=== PATIENT | female | born 1990 | race African-American/Black ===

== ENCOUNTER 2016-04-25 18:24 | Inpatient (IN) | payer MEDICAID ==
[2016-04-25 18:33] VITALS: BP 113/75
--- NOTE | 2016-04-25 18:48 | ER Document Report ---
ED Medical Screen (RME) - General Chief Complaint: Constipation Stated Complaint: ABDOMINAL PAIN/CONSTIPATION Notes: Constipation and . I greeted and performed a rapid initial assessment of this patient. Comprehensive ED assessment and evaluation of the patient, analysis of test results and completion of the medical decision making process will be conducted by additional ED providers. TRAVEL OUTSIDE OF THE [place] IN LAST 30 DAYS: No - Related Data Allergies/Adverse Reactions: No Known Allergies Allergy (Unverified 04/25/16 18:40) Past Medical History Renal/ Medical History: Denies: Hx Peritoneal Dialysis Physical Exam - Vital signs Vitals: Temp Pulse Resp BP Pulse Ox 98.3 F 116 H 20 113/75 99 04/25/16 18:31 04/25/16 18:31 04/25/16 18:31 04/25/16 18:31 04/25/16 18:31 Course - Vital Signs Vital signs: Temp Pulse Resp BP Pulse Ox 98.3 F 116 H 20 113/75 99 04/25/16 18:31 04/25/16 18:31 04/25/16 18:31 04/25/16 18:31 04/25/16 18:31
[2016-04-25 21:04] LABS: ABSOLUTE EOSINOPHILS # (AUTO) 0.1 10^3/uL (0.0-0.6); ABSOLUTE LYMPHOCYTES (AUTO) 1.6 10^3/uL (0.5-4.7); ABSOLUTE MONOCYTES (AUTO) 0.6 10^3/uL (0.1-1.4); ABSOLUTE NEUT (AUTO) 5.5 10^3/uL (1.7-8.2); BASOPHILS % (AUTO) 0.6 % (0-2); HEMATOCRIT 34.7 % (36.0-47.0); HEMOGLOBIN 11.7 g/dL (12.0-15.5); HGB HCT DIFFERENCE 0.4; MEAN CORPUSCULAR HGB CONC 33.8 g/dL (32.0-36.0); MEAN CORPUSCULAR VOLUME 89 fl (80-97); MONOCYTES % (AUTO) 7.3 % (3-13); RED BLOOD COUNT 3.91 10^6/uL (3.72-5.28); RED CELL DISTRIBUTION WIDTH 12.7 % (11.5-14.0); SEGMENTED NEUTROPHILS % (AUTO) 71.1 % (42-78); WHITE BLOOD COUNT 7.8 10^3/uL (4.0-10.5)
[2016-04-25 21:14] LABS: APPEARANCE,URINE CLEAR; BILIRUBIN,URINE NEGATIVE (NEGATIVE); GLUCOSE, URINE NEGATIVE (NEGATIVE); KETONES,URINE NEGATIVE (NEGATIVE); LEUKOCYTE ESTERASE,URINE NEGATIVE (NEGATIVE); NITRITE,URINE NEGATIVE (NEGATIVE); PROTEIN,URINE NEGATIVE (NEGATIVE); UROBILINOGEN,URINE NEGATIVE mg/dL (<2.0)
[2016-04-25 21:23] LABS: ALANINE AMINOTRANSFERASE 28 U/L (9-52); ALBUMIN 3.4 g/dL (3.5-5.0); ALKALINE PHOSPHATASE 83 U/L (38-126); ANION GAP 10 (5-19); ASPARTATE AMINO TRANSFERASE 21 U/L (14-36); BILIRUBIN,TOTAL 0.3 mg/dL (0.2-1.3); BLOOD UREA NITROGEN 5 mg/dL (7-20); CALCIUM 9.2 mg/dL (8.4-10.2); CARBON DIOXIDE 23 mmol/L (22-30); CHLORIDE 103 mmol/L (98-107); CREATININE RESULT 0.58 mg/dL (0.52-1.25); GLUCOSE 77 mg/dL (75-110); LDH 393 U/L (313-618); POTASSIUM 4.2 mmol/L (3.6-5.0); SODIUM 136.2 mmol/L (137-145); TOTAL PROTEIN 6.2 g/dL (6.3-8.2); URIC ACID 3.1 mg/dL (2.5-6.2)
[2016-04-25 21:29] LABS: URINE BARBITURATES SCREEN NEGATIVE; URINE METHADONE SCREEN NEGATIVE; URINE OPIATES LOW NEGATIVE; URINE PHENCYCLIDINE SCREEN NEGATIVE
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
[2016-04-25] MEDS ORDERED: ACETAMINOPHEN 325 MG TABLET ONE (22:08)
[2016-04-25] MEDS ORDERED: RINGERS SOLUTION,LACTATED 1,000 ML IV PRN (22:37)
[2016-04-25 22:58] LABS: PROTHROMBIN TIME 12.2 SEC (11.4-15.4)
[2016-04-25 22:59] LABS: PARTIAL THROMBOPLASTIN TIME 27.3 SEC (23.5-35.8)
[2016-04-25 23:19] LABS: RUBELLA IGG ANTIBODY 2.94 IU/mL
[2016-04-25 23:33] LABS: ADD HIVPANEL? NO; HIV (1 AND 2) ANTIBODY NEGATIVE (NEGATIVE)
[2016-04-25] MEDS ORDERED: MISOPROSTOL 0.2 MG TABLET ONE (23:37)
[2016-04-25] MEDS ORDERED: ACETAMINOPHEN 325 MG TABLET PO PRN (23:37)
[2016-04-25] MEDS ORDERED: ONDANSETRON HCL INJ/PF 4 MG/2 ML SDV IV PRN (23:38)
[2016-04-25] MEDS ORDERED: MORPHINE SULFATE 10 MG/ML INJ IV PRN (23:39)
[2016-04-25] MEDS ORDERED: MISOPROSTOL 0.2 MG TABLET PO SCH (23:45)
[2016-04-26] MEDS ORDERED: ONDANSETRON HCL INJ/PF 4 MG/2 ML SDV ONE (00:34)
[2016-04-26] MEDS ORDERED: MISOPROSTOL 0.2 MG TABLET ONE ×2 (03:41→06:48)
[2016-04-26] MEDS ORDERED: MORPHINE SULFATE 10 MG/ML INJ ONE ×2 (03:52→05:50)
[2016-04-26] MEDS ORDERED: MORPHINE SULFATE 10 MG/ML INJ IV ONE (05:48)
[2016-04-26] MEDS ORDERED: OXYTOCIN/NORMAL SALINE 20 UNIT/1,000 ML RTUINJ ONE (06:48)
[2016-04-26] MEDS ORDERED: IBUPROFEN 800 MG TABLET PO PRN (07:32)
[2016-04-26] MEDS ORDERED: ACETAMINOPHEN WITH CODEINE #3 TABLET PO PRN (07:32)
[2016-04-26] MEDS ORDERED: HYDROMORPHONE HCL INJ/PF 2 MG/ML AMPULE IV PRN (08:00)
--- NOTE | 2016-04-26 08:00 | L&D Flow Sheet ---
LD Flowsheet Datetime Report Generated by CPN: 04/26/2016 08:00 Datetime: 04/26/2016 07:16 Stage of : Recovery (Loreta Montero RN) NBP Sys/Maureen/Mean (mmHg): 121 (QS system process) : 82 (QS system process) : 96 (QS system process) Pulse: 89 (QS system process) Respirations: 14 (Loreta Montero RN) Temperature (F): 97.9 (Loreta Montero RN) Temperature (C): 36.6 (QS system process) Temperature Route: Oral (Loreta Montero RN) Pain Scale: 1 (Loreta Montero RN) Pain Presence: Intermittent (Loreta Montero RN) Pain Type: Cramping (Loreta Montero RN) Pain Location: Abdomen (Loreta Montero RN) Pain Goal: 1 (Loreta Montero RN) Pain Relief Measures: Comfort Measures (Loreta Montero RN) Datetime: 04/26/2016 07:10 Stage of : Recovery (Crystal Elia, RN) Pain Scale: 0 (Crystal [place], RN) Pain Presence: None/Denies (Crystal Elia, RN) Pain Type: N/A (Crystal Elia, RN) Pain Goal: 2 (Crystal [place], RN) Pain Relief Measures: Comfort Measures (Crystal [place], RN) Datetime: 04/26/2016 07:08 Stage 2 Comments: delivery of intact placenta, sent to lab per provider ([facility], ) Datetime: 04/26/2016 07:04 Stage 2 Comments: delivery of fetus in breech presentation. multiple anomalies noted on delivery. transfered to separate room per mother's request. (Kristin Quesada, RN) Datetime: 04/26/2016 07:01 Pushing: Coached on Pushing; Urge to Push (Crystal Elia, RN) Pushing Position: Pushing with Contractions (Crystal [place], RN) Datetime: 04/26/2016 06:54 Pitocin (milliunit): Pitocin Started (milliunits) @ 25 (Crystal Elia, RN) Datetime: 04/26/2016 06:42 Communication: Provider at Bedside (Crystal Elia, RN) Datetime: 04/26/2016 06:38 Communication Comments: Dr. Gonzalez notified of imminent delivery (Kristin Kossmann, RN) Datetime: 04/26/2016 06:37 Stage 2 Comments: patient feeling urge to push, delivery imminent (Kristin Kossmann, RN) Datetime: 04/26/2016 06:27 Temperature (F): 98.1 (Merry Rodrigez RN) Temperature (C): 36.7 (QS system process) LaborFlag: Antepartum (QS system process) Datetime: 04/26/2016 05:51 Stage of : Antepartum (Merry Rodrigez RN) Pain Scale: 5 (Merry Rodrigez RN) Pain Presence: Constant (Merry Rodrigez RN) Pain Type: Cramping; Stabbing (Merry Rodrigez RN) Pain Location: Abdomen; Perineum (Merry Rodrigez RN) Pain Goal: 2 (Merry Rodrigez RN) Pain Relief Measures: Pain Medication Given (Merry Rodrigez RN) Pain Coping: Requesting Pain Medication or Epidural; Crying (Merry Rodrigez RN) Analgesics/Sedatives: Morphine Sulfate (mg) @ (Annotations: 4 mg given IV per Dr. Gonzalez) (Merry Rodrigez RN) Communication: Provider Orders Received; Report Given to @ (Annotations: Dr. Gonzalez ordered 2 mg dilaudid Q 2 hrs IV if pt still in pain in 2 hours. ) (Merry Rodrigez RN) LaborFlag: Antepartum (QS system process) Datetime: 04/26/2016 05:31 Stage of : Antepartum (Crystal Elia, RN) Datetime: 04/26/2016 05:08 Communication Comments: RN at bedside, comforting pt. (Merry Leavittergrass, JAZ) Datetime: 04/26/2016 04:29 Stage of : Antepartum (Merry Rodrigez RN) Pain Scale: 2 (Merry Rodrigez RN) Pain Presence: Constant (Merry Rodrigez RN) Pain Type: Cramping (Merry Rodrigez RN) Pain Location: Abdomen (Merry Rodrigez RN) Pain Goal: 1 (Merry Rodrigez RN) Pain Relief Measures: Pain Medication Given (Merry Rodrigez RN) Pain Coping: Crying (Merry Rodrigez RN) Pain Assessment Comments: Pt reports still pain 2/5 after 2mg morphine IV. Hot pack given for comfort. (Merry Rodrigez RN) LaborFlag: Antepartum (QS system process) Datetime: 04/26/2016 03:59 Analgesics/Sedatives: Morphine Sulfate (mg) @ 2 mg IV (Merry Rodrigez RN) Comfort Measures: Breathing/Relaxation; Family Support (Annotations: Warm blankets given.) (Merry Rodrigez RN) Datetime: 04/26/2016 03:47 Pain Scale: 2 (Merry Rodrigez RN) Pain Presence: Constant (Merry Rodrigez RN) Pain Type: Cramping; Ache (Merry Rodrigez RN) Pain Location: Abdomen; Perineum (Merry Rodrigez RN) Pain Goal: 1 (Merry Rodrigez RN) Pain Relief Measures: Comfort Measures (Merry Rodrigez RN) Pain Coping: Requesting Pain Medication or Epidural (Merry Rodrigez RN) Comfort Measures: Breathing/Relaxation; Family Support (Merry Rodrigez RN) LaborFlag: Antepartum (QS system process) Datetime: 04/26/2016 03:45 NBP Sys/Maureen/Mean (mmHg): 122 (QS system process) : 58 (QS system process) : 84 (QS system process) Pulse: 96 (QS system process) Cervical Ripening Agents: Cytotec @ (Kristin Quesada RN) LaborFlag: Antepartum (QS system process) Datetime: 04/26/2016 03:00 Stage of : Antepartum (Crystal Elia, RN) Communication: RN at Bedside (Crystal Elia RN) Communication Comments: RN at bedside providing comfort. (Crystal Elia, RN) Datetime: 04/26/2016 02:30 Stage of : Antepartum (Crystal [place], RN) Communication: RN at Bedside (Merry Leavittergrass, RN) Communication Comments: Answered call nagel and questions about fluid amount. Pt verbalized understanding. (Crystal [place], RN) Datetime: 04/26/2016 01:59 Stage of : Antepartum (Merry Elia, RN) Communication: RN at Bedside (Merry Leavittergrass, RN) Notification Reason: Other (Merry Elia, RN) Communication Comments: RN at bedside comforting pt, answering questions. (Merry [place], RN) Datetime: 04/26/2016 01:33 Stage of : Antepartum (Crystal Elia, RN) Communication: RN at Bedside (Merry Leavittergrass, RN) Notification Reason: Other (Merry [place], RN) Communication Comments: Discussed and signed loss plan with patient. (Merry Elia, RN) Datetime: 04/26/2016 01:13 Stage of : Antepartum (Merry Rodrigez RN) Strip Reviewed by: Abraham Rodrigez RN (Merry Rodrigez RN) Communication: RN at Bedside (Merry Rodrigez RN) Notification Reason: Other (Merry Rodrigez RN) Communication Comments: Providing comfort to patient (Merry Rodrigez RN) Datetime: 04/26/2016 00:38 Stage of : Antepartum (Crystal [place], RN) Antiemetics/Antacids: Zofran IV (mg) @ 8 mg IV (Crystal Elia, RN) Datetime: 04/26/2016 00:37 Stage of : Antepartum (Crystal Elia, RN) Datetime: 04/26/2016 00:32 Nausea/Vomiting: Present (Crystal Elai, RN) Datetime: 04/26/2016 00:28 Membrane Status: Ruptured (Merry Rodrigez RN) Membranes Ruptured Date/Time: 04/26/2016 00:28 (Kristin Quesada RN) Membranes Rupture Method: Spontaneous (Merry Rodrigez, JAZ) Amniotic Fluid Color: Light Meconium (Merry Rodrigez, JAZ) Amniotic Fluid Amount: Small (Crystal Elia, RN) Amniotic Fluid Odor: None (Crystal Elia, RN) Datetime: 04/25/2016 23:39 Stage of : Antepartum (Merry Rodrigez RN) NBP Sys/Maureen/Mean (mmHg): 116 (QS system process) : 62 (QS system process) : 82 (QS system process) Pulse: 107 (QS system process) Cervical Ripening Agents: Cytotec @ (Annotations: 400 mcg PO) (Merry Rodrigez RN) Communication Comments: Educated pt on cytotec and plan of care. (Merry Rodrigez RN) LaborFlag: Antepartum (QS system process) Datetime: 04/25/2016 23:26 Comfort Measures: Family Support (Merry Rodrigez RN) Datetime: 04/25/2016 23:15 Stage of : Antepartum (Merry Rodrigez RN) Medication Comments: Offered nicotine patch, pt refused. (Merry Rodrigez RN) I/O Interventions: Clear Liquids Given (Annotations: meal provided) (Merry Rodrigez RN) Datetime: 04/25/2016 23:04 Stage of : Antepartum (Merry Rodrigez RN) Communication Comments: RN on the phone with MERLIN Vuier from [facility] discussing plan of care for patients daughter. Pt daughter is okay to stay in the longterm with the voulenteers until pt is discharged from hospital. (Merry Rodrgiez RN) Datetime: 04/25/2016 22:45 Stage of : Antepartum (Merry Rodrigez RN) IV/Blood Work: IV Started; IV Infusing per Order (Annotations: 18 G R FA) (Merry Rodrigez RN) Procedures: Consents Signed (Merry Rodrigez RN) Datetime: 04/25/2016 22:40 Communication Comments: Written orders received to admit pt. at this time. Dr. Gonzalez states no toco monitoring needed. (Mable Cavazos RN) Datetime: 04/25/2016 22:10 Stage of : Antepartum (Merry Rodrigez RN) Analgesics/Sedatives: Tylenol (mg) @ (Annotations: 650 mg PO pain 5/5 head ) (Merry Rodrigez RN)
--- NOTE | 2016-04-26 08:16 | Delivery Summary ---
Del Sum A-C Datetime Report Generated by CPN: 04/26/2016 08:16 ADMISSION DATA Chief Complaint: Other Indication for Induction: Not Applicable Admission Impression: Demise Admission Impression Comments: 20-21 week IUFD No care Admit Provider Comments: Will admit Will draw labs will give cytotec DELIVERY PERSONNEL Delivery Doctor:: Jarrod Gonzalez, Labor and Delivery Nurse:: Merry Rodrigez RN Labor and Delivery Nurse:: Linda Ramírez RN (Annotations: Data stored by CPN on behalf of user) MATERNAL INFORMATION Delivery Anesthesia: None Medications After Delivery: Pitocin Bolus-Please Comment; Pitocin Drip 20 Units/1000ml NSS Meds After Delivery Comment: NS with Pitocin 20 units/liter IVF bolus Estimated Blood Loss (ml): 200 Maternal Complications: Premature Rupture of Membranes; Other Other Maternal Complications: IUFD, nonviable fetus Provider Comments: of nonviable fetus with mutiple gross anomalies, appears to have been greater > 1 week LABOR SUMMARY EDC: 08/12/2016 00:00 No. Babies in Womb: 1 Attempted: No Labor Anesthesia: IV Sedation LABOR INFORMATION Reason for Induction: Demise Onset of Labor: 04/26/2016 00:28 Cervical Ripening Agents: Cytotec @ Oxytocin: N/A Group B Beta Strep: unknown Steroids Given: None Reason Steroids Not Administered: Not Applicable MEMBRANES Membranes Rupture Method: Spontaneous Rupture of Membranes: 04/26/2016 00:28 Length of Rupture (hr): 6.60 Amniotic Fluid Color: Light Meconium Amniotic Fluid Amount: Small Amniotic Fluid Odor: None STAGES OF LABOR Stage 3 hr: 0 Stage 3 min: 4 Total Time in Labor hr: 6 Total Time in Labor min: 40 VAGINAL DELIVERY Episiotomy: None Laceration Type: None Laceration Repair: Not Applicable Sponge Count Correct: Yes Sharps Count Correct: Yes CSECTION DELIVERY Primary Indication: N/A Secondary Indication: N/A Labor: N/A CSection Incision: N/A BABY A INFORMATION Infant Delivery Date/Time: 04/26/2016 07:04 Method of Delivery: Vaginal Born in Route : No : N/A Forceps: N/A Vacuum Extraction: N/A Shoulder Dystocia : No PRESENTATION/POSITION BABY A Presentation: Breech Cephalic Presentation: N/A Breech Presentation: Double Footling PLACENTA INFORMATION BABY A Placenta Delivery Time : 04/26/2016 07:08 Placenta Method of Delivery: Spontaneous Placenta Status: Delivered SCORES BABY A Heart Rate 1 min: Absent Resp Effort 1 min: Absent Reflex Irritability 1 min: No Response Muscle Tone 1 min: Flaccid Color 1 min: Blue/Pale Resuscitation Effort 1 min: N/A SCORE 1 MIN: 0 Heart Rate 5 min: Absent Resp Effort 5 min: Absent Reflex Irritability 5 min: No Response Muscle Tone 5 min: Flaccid Color 5 min: Blue/Pale Resuscitation Effort 5 min: N/A SCORE 5 MIN: 0 INFANT INFORMATION BABY A Gestational Age at Delivery: 20.0 Gestational Status: - <34 Weeks Outcome : Stillborn Infant Condition : Critical Sex: Ambiguous CORD INFORMATION BABY A Nuchal Cord : N/A ASSESSMENT BABY A Complications: Other Complications- Other: IUFD Physical Findings at Delivery: Other Physical Findings- Other: multiple anomalies noted, fetus appears to be for at least a week Rn First Assistant/ALS Called : No BABY B INFORMATION : N/A SIGNATURES Signature: with User ID: Augustus
[2016-04-26 09:16] LABS: ABSOLUTE BASOPHILS # (AUTO) 0.1 10^3/uL (0.0-0.2); ABSOLUTE EOSINOPHILS # (AUTO) 0.1 10^3/uL (0.0-0.6); ABSOLUTE LYMPHOCYTES (AUTO) 0.9 10^3/uL (0.5-4.7); ABSOLUTE MONOCYTES (AUTO) 0.4 10^3/uL (0.1-1.4); ABSOLUTE NEUT (AUTO) 6.6 10^3/uL (1.7-8.2); BASOPHILS % (AUTO) 0.7 % (0-2); EOSINOPHILS % (AUTO) 0.8 % (0-6); HEMATOCRIT 35.8 % (36.0-47.0); HEMOGLOBIN 11.9 g/dL (12.0-15.5); HGB HCT DIFFERENCE -0.1; LYMPHOCYTES % (AUTO) 11.8 % (13-45); MEAN CORPUSCULAR HGB CONC 33.3 g/dL (32.0-36.0); MEAN CORPUSCULAR VOLUME 90 fl (80-97); MONOCYTES % (AUTO) 4.6 % (3-13); RED BLOOD COUNT 3.98 10^6/uL (3.72-5.28); RED CELL DISTRIBUTION WIDTH 12.8 % (11.5-14.0); SEGMENTED NEUTROPHILS % (AUTO) 82.1 % (42-78); WHITE BLOOD COUNT 8.1 10^3/uL (4.0-10.5)
[2016-04-26 09:30] LABS: PARTIAL THROMBOPLASTIN TIME 27.7 SEC (23.5-35.8); PROTHROMBIN TIME 12.3 SEC (11.4-15.4)
--- NOTE | 2016-04-26 12:00 | L&D Flow Sheet ---
LD Flowsheet Datetime Report Generated by CPN: 04/26/2016 12:00 Datetime: 04/26/2016 10:43 Stage of : Recovery (Loreta Montero, RN) Datetime: 04/26/2016 10:21 Stage of : Recovery (Loreta Montero, RN) Pain Scale: 1 (Loreta Montero, RN) Pain Presence: Intermittent (Loreta Montero, RN) Pain Type: Cramping (Loreta Montero, RN) Pain Location: Abdomen (Loreta Montero, RN) Pain Goal: 1 (Loreta Bleckley, RN) Pain Relief Measures: Comfort Measures (Loreta Bleckley, RN) IV/Blood Work: IV Saline Locked (Loreta Bleckley, RN) Datetime: 04/26/2016 09:36 NBP Sys/Amureen/Mean (mmHg): 108 (QS system process) : 64 (QS system process) : 80 (QS system process) Pulse: 84 (QS system process) Datetime: 04/26/2016 09:03 Stage of : Recovery (Loreta Bleckley, RN) Datetime: 04/26/2016 08:30 Stage of : Recovery (Loreta Montero, RN) Datetime: 04/26/2016 08:15 Stage of : Recovery (Loreta Bleckley, ) Pain Scale: 1 (Loreta Winston, RN) Pain Presence: Intermittent ([facility] ) Pain Type: Cramping ([facility], ) Pain Location: Abdomen ([facility], ) Pain Goal: 1 (Loreta Bleckley, RN) Pain Relief Measures: Comfort Measures (Loreta Winston, ) Pain Assessment Comments: Patient resting, no acute distress (Loreta Bleckley, ) Datetime: 04/26/2016 08:13 Stage of : Recovery (Loreta Bleckley, ) Datetime: 04/26/2016 08:00 Stage of : Recovery (Loreta Montero RN) Pain Scale: 1 (Loreta Montero RN) Pain Presence: Intermittent (Loreta Montero RN) Pain Type: Cramping (Loreta Montero RN) Pain Location: Abdomen (Loreta Montero RN) Pain Goal: 1 (Loreta Montero RN) Pain Relief Measures: Comfort Measures (Loreta Montero RN)
[2016-04-26] MEDS ORDERED: INFLUENZA ADLT QUAD (36MOS+) 2016-17 VAC 0.5 ML SYR IM PRN (12:42)
[2016-04-26 13:23] LABS: ABSOLUTE EOSINOPHILS # (AUTO) 0.1 10^3/uL (0.0-0.6); ABSOLUTE LYMPHOCYTES (AUTO) 1.2 10^3/uL (0.5-4.7); ABSOLUTE MONOCYTES (AUTO) 0.6 10^3/uL (0.1-1.4); BASOPHILS % (AUTO) 0.5 % (0-2); HEMOGLOBIN 11.5 g/dL (12.0-15.5); HGB HCT DIFFERENCE 0.5; LYMPHOCYTES % (AUTO) 13.3 % (13-45); MEAN CORPUSCULAR HEMOGLOBIN 29.9 pg (27.0-33.4); MEAN CORPUSCULAR HGB CONC 33.7 g/dL (32.0-36.0); MEAN CORPUSCULAR VOLUME 89 fl (80-97); MONOCYTES % (AUTO) 6.5 % (3-13); RED BLOOD COUNT 3.83 10^6/uL (3.72-5.28); RED CELL DISTRIBUTION WIDTH 12.6 % (11.5-14.0); SEGMENTED NEUTROPHILS % (AUTO) 78.7 % (42-78); WHITE BLOOD COUNT 8.9 10^3/uL (4.0-10.5)
[2016-04-26] MEDS ORDERED: MEDROXYPROGESTERONE ACET INJ 150 MG/1 ML VIAL IM ONE (13:51)
[2016-04-26] MEDS ORDERED: ACETAMINOPHEN WITH CODEINE #3 TABLET ONE (13:54)
--- NOTE | 2016-04-26 14:00 | L&D Flow Sheet ---
LD Flowsheet Datetime Report Generated by CPN: 04/26/2016 14:00 Datetime: 04/26/2016 13:41 Stage of : Recovery (Loreta Winston, RN) Datetime: 04/26/2016 13:38 Stage of : Recovery (Loreta Wheatland, RN) Datetime: 04/26/2016 13:02 Stage of : Recovery (Loreta Montero, JAZ) Datetime: 04/26/2016 13:00 Stage of : Labor (Loreta Montero RN) NBP Sys/Maureen/Mean (mmHg): 124 (QS system process) : 58 (QS system process) : 84 (QS system process) Pulse: 79 (QS system process) Respirations: 14 (Loreta Montero RN) Temperature (F): 98.0 (Loreta Montero RN) Temperature (C): 36.7 (QS system process) Temperature Route: Oral (Loreta Montero RN) Pain Scale: 1 (Loreta Montero RN) Pain Presence: Intermittent (Loreta Montero RN) Pain Type: Cramping (Loreta Montero RN) Pain Location: Abdomen (Loreta Montero RN) Pain Goal: 1 (Loreta Montero RN) Pain Relief Measures: Comfort Measures (Loreta Montero RN) LaborFlag: Labor (QS system process) Datetime: 04/26/2016 12:50 Stage of : Recovery (Loreta Montero, JAZ) Datetime: 04/26/2016 12:00 Stage of : Recovery (Loreta Montero RN) Pain Scale: 1 (Loreta Montero RN) Pain Presence: Intermittent (Loreta Montero RN) Pain Type: Cramping (Loreta Montero RN) Pain Location: Abdomen (Loreta Montero RN) Pain Goal: 1 (Loreta Montero RN) Pain Relief Measures: Comfort Measures (Loreta Montero RN)
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
--- NOTE | 2016-04-26 15:29 | PDOC DISCHARGE SUMMARY ---
Final Diagnosis Discharge Date: 04/26/16 - Final Diagnosis (1) demise before 22 weeks with retention of fetus Is this a current diagnosis for this admission?: Yes (2) delivery Is this a current diagnosis for this admission?: Yes (3) No care in current Is this a current diagnosis for this admission?: Yes Discharge Data - Discharge Medication Home Medications: Cephalexin Monohydrate [Keflex 500 mg Capsule] 500 mg PO BID #14 capsule Ibuprofen 800 mg PO Q8HP PRN #90 tablet 04/26/16 Reason(s) for Admission: Demise Procedures: None - ultrasound on admission Intrapartum Procedure(s): Breech Extraction-Total - Diagnosis Test Laboratory: Temp Pulse Resp BP Pulse Ox 98.3 F 116 H 20 113/75 99 04/26/16 12:36 04/26/16 12:36 04/26/16 12:36 04/25/16 18:31 04/26/16 12:36 04/25/16 04/25/16 04/26/16 20:25 20:45 08:26 RBC 3.91 3.98 Hgb 11.7 L 11.9 L Hct 34.7 L 35.8 L Urine Opiates Screen NEGATIVE 04/26/16 12:55 RBC 3.83 Hgb 11.5 L Hct 34.0 L Urine Opiates Screen - Discharge information/Instructions Discharge Activity: Activity As Tolerated, Balance Activity w/Rest, Pelvic Rest , Slowly Increase Activity, No tub bath Discharge Diet: Regular Disposition: HOME, SELF-CARE Follow up with: [facility] in: 1, Weeks
--- NOTE | 2016-04-26 19:01 | L&D Flow Sheet ---
LD Flowsheet Datetime Report Generated by CPN: 04/26/2016 19:00 Datetime: 04/26/2016 14:47 Stage of : Recovery (Loreta Montero RN) Temperature (F): 98.0 (Loreta Montero RN) Temperature (C): 36.7 (QS system process) Temperature Route: Oral (Loreta Montero RN) Pain Scale: 1 (Loreta Montero RN) Pain Presence: Intermittent (Loreta Montero RN) Pain Type: Cramping (Loreta Montero RN) Pain Location: Abdomen (Loreta Montero RN) Pain Goal: 1 (Loreta Montero RN) Pain Relief Measures: Comfort Measures (Loreta Montero RN) Datetime: 04/26/2016 14:34 Stage of : Recovery (Loreta Butts, RN) Datetime: 04/26/2016 14:02 Stage of : Recovery (Loreta Butts, RN) Datetime: 04/26/2016 14:00 Stage of : Recovery (Loreta Winston, RN) Pain Scale: 3 (Loreta Winston, RN) Pain Presence: Intermittent (Loreta Butts, RN) Pain Type: Cramping (Loreta Butts, RN) Pain Location: Abdomen (Loreta Butts, RN) Pain Goal: 1 (Loreta Butts, RN) Pain Relief Measures: Comfort Measures (Loreta Butts, RN) Datetime: 04/26/2016 13:41 Stage of : Recovery (Loreta Winston, RN) Datetime: 04/26/2016 13:38 Stage of : Recovery (Loreta Butts, RN) Datetime: 04/26/2016 13:02 Stage of : Recovery (Loreta Butts, RN) Datetime: 04/26/2016 13:00 Stage of : Labor (Loreta Montero RN) NBP Sys/Maureen/Mean (mmHg): 124 (QS system process) : 58 (QS system process) : 84 (QS system process) Pulse: 79 (QS system process) Respirations: 14 (Loreta Montero RN) Temperature (F): 98.0 (Loreta Montero RN) Temperature (C): 36.7 (QS system process) Temperature Route: Oral (Loreta Montero RN) Pain Scale: 1 (Loreta Montero RN) Pain Presence: Intermittent (Loreta Montero RN) Pain Type: Cramping (Loreta Montero RN) Pain Location: Abdomen (Loreta Montero RN) Pain Goal: 1 (Loreta Montero RN) Pain Relief Measures: Comfort Measures (Loreta Montero RN) LaborFlag: Labor (QS system process) Datetime: 04/26/2016 12:50 Stage of : Recovery (Loreta Montero, JAZ) Datetime: 04/26/2016 12:00 Stage of : Recovery ([facility], ) Pain Scale: 1 ([facility]) Pain Presence: Intermittent ([facility], RN) Pain Type: Cramping ([facility], RN) Pain Location: Abdomen ([facility], RN) Pain Goal: 1 ([facility], RN) Pain Relief Measures: Comfort Measures ([facility], RN) Datetime: 04/26/2016 11:00 Stage of : Recovery ([facility], ) Pain Scale: 1 ([facility], RN) Pain Presence: Intermittent ([facility], RN) Pain Type: Cramping ([facility], RN) Pain Location: Abdomen ([facility], RN) Pain Goal: 1 ([facility], RN) Pain Relief Measures: Comfort Measures ([facility], RN) Datetime: 04/26/2016 10:43 Stage of : Recovery (Loreta Winston, ) Datetime: 04/26/2016 10:21 Stage of : Recovery (Loreta Montero RN) Pain Scale: 1 (Loreta Montero RN) Pain Presence: Intermittent (Loreta Montero RN) Pain Type: Cramping (Loreta Montero RN) Pain Location: Abdomen (Loreta Montero RN) Pain Goal: 1 (Loreta Montero RN) Pain Relief Measures: Comfort Measures (Loreta Montero RN) IV/Blood Work: IV Saline Locked (Loreta Montero RN) Datetime: 04/26/2016 09:36 NBP Sys/Maureen/Mean (mmHg): 108 (QS system process) : 64 (QS system process) : 80 (QS system process) Pulse: 84 (QS system process) Datetime: 04/26/2016 09:03 Stage of : Recovery (Loreta Montero, ) Datetime: 04/26/2016 08:30 Stage of : [facility] Datetime: 04/26/2016 08:15 Stage of : Recovery (Loreta Montero RN) Pain Scale: 1 (Loreta Montero RN) Pain Presence: Intermittent (Loreta Montero RN) Pain Type: Cramping (Loreta Montero RN) Pain Location: Abdomen (Loreta Montero RN) Pain Goal: 1 (Loreta Montero RN) Pain Relief Measures: Comfort Measures (Loreta Montero RN) Pain Assessment Comments: Patient resting, no acute distress (Loreta Winston, RN) Datetime: 04/26/2016 08:13 Stage of : Recovery (Loreta Winston, RN) Datetime: 04/26/2016 08:00 Stage of : Recovery (Loreta Winston, RN) Pain Scale: 1 (Loreta Winston, RN) Pain Presence: Intermittent (Loreta Butts, RN) Pain Type: Cramping (Loreta Butts, RN) Pain Location: Abdomen (Loreta Butts, RN) Pain Goal: 1 (Loreta Winston, RN) Pain Relief Measures: Comfort Measures (Loreta Winston, RN) Datetime: 04/26/2016 07:16 Stage of : Recovery (Loreta Montero RN) NBP Sys/Maureen/Mean (mmHg): 121 (QS system process) : 82 (QS system process) : 96 (QS system process) Pulse: 89 (QS system process) Respirations: 14 (Loreta Montero RN) Temperature (F): 97.9 (Loreta Montero RN) Temperature (C): 36.6 (QS system process) Temperature Route: Oral (Loreta Montero RN) Pain Scale: 1 (Loreta Montero RN) Pain Presence: Intermittent (Loreta Montero RN) Pain Type: Cramping (Loreta Montero RN) Pain Location: Abdomen (Loreta Montero RN) Pain Goal: 1 (Loreta Montero RN) Pain Relief Measures: Comfort Measures (Loreta Montero RN) Datetime: 04/26/2016 07:15 Stage of : Recovery (Loreta Montero RN) Datetime: 04/26/2016 07:10 Stage of : Recovery (Merry Rodrigez RN) Pain Scale: 0 (Merry Rodrigez RN) Pain Presence: None/Denies (Merry Rodrigez, RN) Pain Type: N/A (Merry [place], RN) Pain Goal: 2 (Merry Rodrigez RN) Pain Relief Measures: Comfort Measures (Merry Rodrigez, JAZ) Datetime: 04/26/2016 07:08 Stage 2 Comments: delivery of intact placenta, sent to lab per provider (Kristin Quesada RN) Datetime: 04/26/2016 07:04 Stage 2 Comments: delivery of fetus in breech presentation. multiple anomalies noted on delivery. transfered to separate room per mother's request. (Kristin Quesada RN) Datetime: 04/26/2016 07:01 Pushing: Coached on Pushing; Urge to Push (Merry Rodrigez RN) Pushing Position: Pushing with Contractions (Merry Rodrigez RN)
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
--- NOTE | 2016-04-27 06:16 | L&D Care Plan ---
LD CARE PLANS Datetime Report Generated by CPN: 04/27/2016 06:15 Datetime: 04/25/2016 22:45 Pain State: Risk For (Mable Cavazos RN) Related To: Labor and Delivery Process; Surgical Procedure; Complication(s) of ; Disease Process; Treatment and Procedures (Mable Cavazos RN) Goal(s): Patients Pain will be Assessed and Managed; Patient will Verbalize Adequate Relief of Pain or the Ability to [place] with Current Pain (Mable Cavazos RN) Interventions: Assess Pain Severity on Scale of 0 (None) to 5 (Severe); Assess Type, Location and Intensity of Pain Each Time Client Reports Discomfort and Notify Provider if Unusal Pain Develops; Encourage Proper Breathing and Relaxation Techniques; Offer Alternatives Such as Repositioning, Calm Environment, Massages, Diversional Activities, Ice Pack, Splinting, and Ambulation; Administer Analgesics as Ordered; Assist with Epidural Placement as Appropriate; Evaluate Therapeutic Effectiveness of Medication and Treatments (Mable Cavazos RN) Outcome: Patient will Report Absence or Relief of Pain Consistent with Established Pain Goal (Mable Cavazos RN) Status: Ongoing (Mable Cavazos RN) Outcome: Patient will have a Decrease in Signs and Symptoms of Discomfort (Mable Cavazos RN) Status: Ongoing (Mable Cavazos RN) Outcome: Pain will be Controlled During Procedures (Mable Cavazos RN) Status: Ongoing (Mable Cavazos RN) Anxiety State: Risk For (Mable Cavazos RN) Related To: Labor and Delivery Process; Surgical Procedure; Perceived or Actual Threat to ; Fear of Unknown; Situational Crisis; Medical Interventions; Significant Life Event (Mable Cavazos RN) Goal(s): Patient will have Decreased Anxiety and be able to Function at Acceptable Levels (Mable Cavazos RN) Interventions: Assess Verbal and Nonverbal Behavioral Indicators of Anxiety; Assist Patient to Identify and Verbalize Symptoms of Anxiety; Identify and Demonstrate Techniques to Control Anxiety; Assist Patient with Coping Mechanisms to Manage Anxiety; Provide Theraputic Touch for the Patient; Explain to Patient, Using a Calm Reassuring Approach and Nonmedical Terms, All Activities, Procedures, and Concerns; Instruct Patient and Family about Post Discharge Care, Limitations, Symptoms to Report and Resources Available (Mable Cavazos RN) Outcome: Patient will Identify, Verbalize and Demonstrate Techniques to Control Anxiety (Mable Cavazos RN) Status: Ongoing (Mable Cavazos RN) Outcome: Patient's Posture, Facial Expressions, Gestures and Activity Level will Reflect Decreased Anxiety (Mable Cavazos RN) Status: Ongoing (Mable Cavazos RN) Outcome: Patient will Verbalize a Sense of Control and/or Acceptance of the Situation (Mable Cavazos RN) Status: Ongoing (Mable Cavazos RN) Outcome: Patient will Identify and Utilize Support Person (Mable Cavazos RN) Status: Ongoing (Mable Cavazos RN) Knowledge Deficit State: Risk For (Mable Cavazos RN) Related To: Labor and Delivery Process; Surgical Procedures; Treatment and Procedures; Impending Alterations in Family Dynamics; Feeding and Care; Community Resources and Available Support Mechanisms (Mable Cavazos RN) Goal(s): Patient will Accurately Verbalize Understanding of Plan of Care and Treatment; Patient and Family will Accurately Verbalize Understanding of the Disease Process (Mable Cavazos RN) Interventions: Assess Motivation and Willingness of Patient/Family to Learn; Assess Preferred Learning Mode: One to One Instruction, Reading, Videos, Group Discussion or Demonstration; Assess Barriers to Learning: Pain, Emotional State, Language Barrier, Cognitive Impairment, Visual or Hearing Deficits; Assess Patient and Family Knowledge of Disease Process, Medications and Treatment; Discuss Therapy and/or Treatment Options, Describe Rationale Behind Management, Therapy and Treatment Recommendations; Instruct Patient and Family on Signs and Symptoms to Report; Instruct Patient and Family on Medication Effects and Side Effects; Provide Appropriate and Timely Education Using Multiple Techniques; Provide Patient and Family with Support Group Information and Resources; Give Clear and Thorough Explanations and Demonstrations (Mable Cavazos RN) Outcome: Patient and Family will Verbalize Understanding of Condition, Treatment and Signs and Symptoms to Report (Mable Cavazos RN) Outcome: Patient will Identify Perceived Learning Needs and Express Motivation to Learn (Mable Cavazos RN) Outcome: Patient will Verbalize Understanding of Desired Content, and/or Performs Desired Skill Prior to Discharge (Mable Cavazos RN) Infection State: Risk For (Mable Cavazos RN) Related To: Surgical Procedures; Prolonged Labor or Induction; Premature/Prolonged Rupture of Membranes; Invasive Procedures; Altered Tissue Integrity (Mable Cavazos RN) Goal(s): The Patient will be Free of Infection, Vital Signs Stable and Lab Work within Normal Parameters (Mable Cavazos RN) Interventions: Instruct and Reinforce Proper Handwashing, Hygiene, and Care Techniques to Patient and Family; Monitor Vital Signs; Monitor Patient for the Following Signs of Infection: Fever, Abdominal Tenderness, Unusual Discharge; Monitor Aminiotic Fluid, Urine and Lochia for Color and Odor; Observe Wounds, Incisions and Invasive Line Sites for Redness, Drainage and Edema; Assess IV Sites per Hospital Policy; Monitor Lab and Test Results and Notify Provider of Abnormal Findings; Assess Nutritional Status and Promote Good Nutrition (Mable Cavazos RN) Outcome: Patient will Remain Free of Infection (Mable Cavazos RN) Status: Ongoing (Mable Cavazos RN) Outcome: Infection will be Recognized Early to Allow for Prompt Treatment (Mable Cavazos RN) Status: Ongoing (Mable Cavazos RN) Outcome: Patient will have Vital Signs Within Expected Range (Mable Cavazos RN) Status: Ongoing (Mable Cavazos RN) Fluid Volume State: Risk For (Mable Cavazos RN) Related To: Gestational Hypertension; Surgical Procedures; Prolonged Labor or Induction; Hemorrhage; Disease Process; Anesthesia; Altered Renal Function (Mable Cavazos RN) Goal(s): Patient will Achieve and Maintain a Balanced Fluid Volume Status; Hemodynamically Stable (Mable Cavazos RN) Interventions: Monitor Vital Signs; Auscultate Breath Sounds; Monitor Patient for Skin Turgor, Mucous Membranes, Dry Skin, Weakness, Headaches and Confusion; Provide Oral Fluids as Ordered; Initiate and Maintain Intravenous Fluids as Ordered; Monitor Intake and Output as Indicated Per Patient Status; Accurately Measure Blood Loss; Monitor Lab and Test Results as Obtained and Notify Provider of Abnormal Findings; Monitor Patient's Weight (Mable Cavazos RN) Outcome: Patient will have Clear Lung Sounds (Mable Cavazos RN) Outcome: Patient will have Vital Signs within Expected Range (Mable Cavazos RN) Outcome: Urine Output will be within Expected Range (Mable Cavazos RN) Outcome: Patient will have Minimal Generalized or Upper Extremity Edema (Mable Cavazos RN) Injury State: Risk For (Mable Cavazos RN) Related To: Labor and Delivery Process; Gestational Hypertension or Eclampsia; Anesthesia; Altered Coagulation; Risk to Status; Uteroplacental Perfusion; Decreased Mobility; Hemorrhage, Placenta Previa and or Placental Abruption; Uterine Rupture (Mable Cavazos RN) Goal(s): Patient will Remain Free from Injury (Mable Cavazos RN) Interventions: Perform Risk Assessment of Patients with Induction and ; Perform Fall Risk Assessment and Prevention per Hospital Protocol; Perform DVT Risk Assessment and Prophylaxis per Hospital Protocol; Ensure that Oxygen, Suction, and Resuscitation Medications and Equipment are Readily Available; Confirm Patient ID Prior to Procedure(s) and Medication Administration per Hospital Policy (Mable Cavazos RN) Outcome: Successful Fall Risk Prevention (Mable Cavazos RN) Status: Ongoing (Mable Cavazos RN) Outcome: Patient will Deliver Infant without Adverse [place] (Mable Cavazos RN) Status: Ongoing (Mable Cavazos RN) Outcome: Patient's Neurological Status will Remain Stable (Mable Cavazos RN) Status: Ongoing (Mable Cavazos RN) Impaired Skin Integrity State: Risk For (Mable Cavazos RN) Related To: Vaginal Delivery; Surgical Procedures; Altered Tissue Integrity; Invasive Procedures (Mable Cavazos RN) Goal(s): Patient will Maintain Optimal Skin Integrity, Free of Breakdown, Injury or Infection (Mable Cavazos RN) Interventions: Complete Screening for Pressure Ulcer Risk and Initiate Protocol per Hospital Policy; Monitor Site of Skin Impairment for Color Changes, Redness, Swelling, Warmth, Pain or Other Signs of Infection; Encourage and Assist with Position Changes; Monitor Patient's Mobility Status; Provide Adequate Nutrition and Fluids; Teach Patient Appropriate Hygienic Care; Teach Patient/Family Skin Care Management (Mable Cavazos RN) Outcome: Patient will not have Evidence of Injury Such as Skin Breakdown, Scrapes, Cuts, or Bruising (Mable Cavazos RN) Status: Ongoing (Mable Cavazos RN) Outcome: Patient will Report Any Altered Sensation or Pain at Site of Skin Impairment (Mable Cavazos RN) Status: Ongoing (Mable Cavazos RN) Outcome: Patients Incisions and Wounds will be without Signs or Symptoms of Infection (Mable Cavazos RN) Status: Ongoing (Mable Cavazos RN) Outcome: Patient will Demonstrate Understanding of Plan to Heal Skin and Prevent Reinjury and Verbalize Risk Factors (Mable Cavazos RN) Status: Ongoing (Mable Cavazos RN)
[2016-04-27 07:42] LABS: HEPATITIS C VIRUS AB <0.1 s/co ratio (0.0-0.9)
== END 2016-04-26 14:47 | disposition home or self-care (01) | DRG 775 ==
LOC: ER 18:24 → EDSTATUS 20:10 → LC 20:11 → LR 22:20 → UNDODISIN 04-26 02:07
PROVIDERS: ADMIT Obstetrics & Gynecology; ATTEND Obstetrics & Gynecology
PROC: 10E0XZZ Delivery of Products of Conception, External Approach (ICD-10-PCS; principal; 2016-04-26)
DX: O36.4XX0 Maternal care for intrauterine death, not applicable or unspecified (principal); O77.0 Labor and delivery complicated by meconium in amniotic fluid; O99.332 Smoking (tobacco) complicating pregnancy, second trimester; F17.210 Nicotine dependence, cigarettes, uncomplicated; Z3A.21 21 weeks gestation of pregnancy; Z37.1 Single stillbirth
CPT/HCPCS: 36415; 76815; 80053; 80307; 81001; 83615; 84550; 85025; 85362; 85610; 85730; 86592; 86701; 86762; 86850; 86900; 86901; 87340; 88300; 88305; 90686; J1050; J2270; J2405; J2590

== ENCOUNTER 2016-05-14 13:12 | Emergency (ER) | payer MEDICAID ==
--- NOTE | 2016-05-14 13:27 | ER Document Report ---
ED Medical Screen (RME) - General Stated Complaint: BACK PAIN Mode of Arrival: Ambulatory Information source: Patient Notes: 25-year-old female presents to the emergency department to right lower back pain. Reports history of demise and induced vaginal delivery approximately 2.5 weeks ago. Reports still has some vaginal bleeding but improving. Denies fever. Currently on course of Kelflex. I have greeted and performed a rapid initial assessment of this patient. A comprehensive ED assessment and evaluation of the patient, analysis of test results and completion of the medical decision making process will be conducted by additional ED providers. TRAVEL OUTSIDE OF THE [place] IN LAST 30 DAYS: No - Related Data Allergies/Adverse Reactions: No Known Allergies Allergy (Verified 05/14/16 13:22) Past Medical History - Social History Chew tobacco use (# tins/day): No Frequency of alcohol use: None Drug Abuse: None Renal/ Medical History: Denies: Hx Peritoneal Dialysis Physical Exam - Vital signs Vitals: Temp Pulse Resp BP Pulse Ox 98.4 F 92 16 115/70 97 05/14/16 13:18 05/14/16 13:18 05/14/16 13:18 05/14/16 13:18 05/14/16 13:18 - General General appearance: Appears well, Alert In distress: None - Respiratory Respiratory status: No respiratory distress Course - Vital Signs Vital signs: Temp Pulse Resp BP Pulse Ox 98.4 F 92 16 115/70 97 05/14/16 13:18 05/14/16 13:18 05/14/16 13:18 05/14/16 13:18 05/14/16 13:18
[2016-05-14 13:59] LABS: APPEARANCE,URINE SLIGHTLY-CLOUDY; BILIRUBIN,URINE NEGATIVE (NEGATIVE); GLUCOSE, URINE NEGATIVE (NEGATIVE); KETONES,URINE NEGATIVE (NEGATIVE); LEUKOCYTE ESTERASE,URINE MODERATE (NEGATIVE); NITRITE,URINE NEGATIVE (NEGATIVE); PROTEIN,URINE NEGATIVE (NEGATIVE); URINE SPECIFIC GRAVITY 1.013
--- NOTE | 2016-05-14 14:47 | ER Document Report ---
ED Neck/Back Problem - General Chief Complaint: Back Pain Stated Complaint: BACK PAIN Mode of Arrival: Ambulatory Information source: Patient Notes: Patient states she had a stillborn delivery on 04/26/2016. Patient was at the time of her 5 months . Patient states that she was given a Depo shot on 04/27/2016. Patient has not been sexually active since then. Patient complains of right flank pain that started yesterday. Patient denies any fever or urinary symptoms. Patient does continue to have vaginal bleeding. TRAVEL OUTSIDE OF THE [place] IN LAST 30 DAYS: No - HPI Patient complains to provider of: Pain, Lower back Onset: Yesterday Timing: Still present Pain Level: 3 Recent injury: No Associated symptoms: Lower back pain. denies: Abdominal pain, Fever, Unable to urinate Exacerbated by: Movement of trunk Relieved by: Nothing Similar symptoms previously: Yes Recently seen / treated by doctor: No - Related Data Allergies/Adverse Reactions: No Known Allergies Allergy (Verified 05/14/16 13:22) Past Medical History - General Information source: Patient Last Menstrual Period: demise with stillborn delivery 04/26/2016 - Social History Smoking Status: Current Every Day Smoker Chew tobacco use (# tins/day): No Frequency of alcohol use: None Drug Abuse: None Occupation: food trades assistants Lives with: Family Family History: Reviewed & Not Pertinent Patient has suicidal ideation: No Patient has homicidal ideation: No - Medical History Medical History: Negative Renal/ Medical History: Denies: Hx Peritoneal Dialysis Past Surgical History: Reports: Hx Breast Surgery Review of Systems - Review of Systems Constitutional: No symptoms reported. denies: Fever EENT: No symptoms reported Cardiovascular: No symptoms reported. denies: Chest pain Respiratory: No symptoms reported. denies: Cough, Short of breath Gastrointestinal: No symptoms reported. denies: Abdominal pain, Nausea, Vomiting Genitourinary: Flank pain. denies: Dysuria Female Genitourinary: Vaginal bleeding. denies: Vaginal discharge Musculoskeletal: Back pain Skin: No symptoms reported Hematologic/Lymphatic: No symptoms reported Neurological/Psychological: No symptoms reported Physical Exam - Vital signs Vitals: Temp Pulse Resp BP Pulse Ox 98.4 F 92 16 115/70 97 05/14/16 13:18 05/14/16 13:18 05/14/16 13:18 05/14/16 13:18 05/14/16 13:18 - General General appearance: Appears well, Alert In distress: None Notes: PHYSICAL EXAMINATION: GENERAL: Well-appearing and in no acute distress. HEAD: Atraumatic, normocephalic. EYES: sclera anicteric, conjunctiva are normal. ENT: nares patent. Moist mucous membranes. NECK: Normal range of motion, supple without lymphadenopathy LUNGS: CTAB and equal. No wheezes rales or rhonchi. HEART: Regular rate and rhythm without murmurs ABDOMEN: Soft, mild suprapubic tenderness, normal bowel sounds, no guarding. EXTREMITIES: Normal range of motion, no pitting edema. No cyanosis. BACK: No midline tenderness, no step-off or deformity. Right CVA tenderness NEUROLOGICAL: Cranial nerves grossly intact. Normal speech. Normal gait. PSYCH: Normal mood, normal affect. SKIN: Warm, Dry, normal turgor, no rashes or lesions noted Course - Re-evaluation Re-evalutation: 05/14/16 14:[address] Mirza who advises obtaining blood work as well as a quantitative hCG. 05/14/16 16:[address] Mirza regarding patient's lab work, does not recommend any ultrasound imaging, agrees with plan for discharge. - Vital Signs Vital signs: Temp Pulse Resp BP Pulse Ox 98.4 F 92 16 115/70 97 05/14/16 13:18 05/14/16 13:18 05/14/16 13:18 05/14/16 13:18 05/14/16 13:18 - Laboratory Result Diagrams: 05/14/16 15:34 05/14/16 15:34 Laboratory results interpreted by me: 05/14/16 05/14/16 05/14/16 13:37 14:52 15:34 Beta HCG, Quant 7.29 H Urine Blood LARGE H Urine Urobilinogen 4.0 H 4.0 H Ur Leukocyte Esterase MODERATE H SMALL H Urine Ascorbic Acid 20 H Urine HCG, Qual POSITIVE H 05/14/16 16:44 Labs- Entire Visit 05/14/16 05/14/16 05/14/16 13:37 14:52 15:34 WBC 5.6 RBC 4.62 Hgb 13.8 Hct 41.3 MCV 89 MCH 29.9 MCHC 33.4 RDW 13.6 Plt Count 279 Seg Neutrophils % 61.9 Lymphocytes % 29.3 Monocytes % 6.2 Eosinophils % 1.8 Basophils % 0.8 Absolute Neutrophils 3.5 Absolute Lymphocytes 1.7 Absolute Monocytes 0.3 Absolute Eosinophils 0.1 Absolute Basophils 0.0 Sodium Potassium Chloride Carbon Dioxide Anion Gap BUN Creatinine Est GFR ( Amer) Est GFR (Non-Af Amer) Glucose Calcium Total Bilirubin Direct Bilirubin AST ALT Alkaline Phosphatase Total Protein Albumin Lipase Beta HCG, Quant Total Beta HCG Urine Color YELLOW YELLOW Urine Appearance SLIGHTLY-CLOUDY CLEAR Urine pH 8.0 6.0 Ur Specific [place] 1.013 1.016 Urine Protein NEGATIVE NEGATIVE Urine Glucose (UA) NEGATIVE NEGATIVE Urine Ketones NEGATIVE NEGATIVE Urine Blood LARGE H NEGATIVE Urine Nitrite NEGATIVE NEGATIVE Urine Bilirubin NEGATIVE NEGATIVE Urine Urobilinogen 4.0 H 4.0 H Ur Leukocyte Esterase MODERATE H SMALL H Urine WBC (Auto) 24 2 Urine RBC (Auto) 1 1 Urine Bacteria (Auto) TRACE Squamous Epi Cells Auto 3 1 Urine Mucus (Auto) RARE OCC Urine Ascorbic Acid NEGATIVE 20 H Urine HCG, Qual POSITIVE H 05/14/16 15:34 WBC RBC Hgb Hct MCV MCH MCHC RDW Plt Count Seg Neutrophils % Lymphocytes % Monocytes % Eosinophils % Basophils % Absolute Neutrophils Absolute Lymphocytes Absolute Monocytes Absolute Eosinophils Absolute Basophils Sodium 139.8 Potassium 4.7 Chloride 106 Carbon Dioxide 26 Anion Gap 8 BUN 7 Creatinine 0.66 Est GFR ( Amer) > 60 Est GFR (Non-Af Amer) > 60 Glucose 84 Calcium 9.5 Total Bilirubin 0.5 Direct Bilirubin 0.0 AST 20 ALT 24 Alkaline Phosphatase 79 Total Protein 7.4 Albumin 3.8 Lipase 192.6 Beta HCG, Quant 7.29 H Total Beta HCG POSITIVE Urine Color Urine Appearance Urine pH Ur Specific [place] Urine Protein Urine Glucose (UA) Urine Ketones Urine Blood Urine Nitrite Urine Bilirubin Urine Urobilinogen Ur Leukocyte Esterase Urine WBC (Auto) Urine RBC (Auto) Urine Bacteria (Auto) Squamous Epi Cells Auto Urine Mucus (Auto) Urine Ascorbic Acid Urine HCG, Qual 05/14/16 17:06 Discharge - Discharge Clinical Impression: Low back pain Qualifiers: Chronicity: acute Back pain laterality: right Sciatica presence: without sciatica Qualified Code(s): M54.5 - Low back pain Condition: Stable Disposition: HOME, SELF-CARE Instructions: Low Back Pain ([facility]), Ice Packs ([facility]), Warm Packs ([facility]), Oral Narcotic Medication ([facility]) Additional Instructions: Return immediately for any new or worsening symptoms Followup with your primary care provider, call tomorrow to make a followup appointment Prescriptions: Oxycodone HCl/Acetaminophen [Percocet 5-325 mg Tablet] 1 tab PO ASDIR PRN #15 tablet PRN Reason: Forms: Return to Work Referrals: [facility] [Provider Group] - Follow up as needed
[2016-05-14 15:19] LABS: APPEARANCE,URINE CLEAR; BILIRUBIN,URINE NEGATIVE (NEGATIVE); GLUCOSE, URINE NEGATIVE (NEGATIVE); KETONES,URINE NEGATIVE (NEGATIVE); LEUKOCYTE ESTERASE,URINE SMALL (NEGATIVE); NITRITE,URINE NEGATIVE (NEGATIVE); PROTEIN,URINE NEGATIVE (NEGATIVE); URINE SPECIFIC GRAVITY 1.016
[2016-05-14 15:52] LABS: ABSOLUTE EOSINOPHILS # (AUTO) 0.1 10^3/uL (0.0-0.6); ABSOLUTE LYMPHOCYTES (AUTO) 1.7 10^3/uL (0.5-4.7); ABSOLUTE MONOCYTES (AUTO) 0.3 10^3/uL (0.1-1.4); ABSOLUTE NEUT (AUTO) 3.5 10^3/uL (1.7-8.2); BASOPHILS % (AUTO) 0.8 % (0-2); EOSINOPHILS % (AUTO) 1.8 % (0-6); HEMATOCRIT 41.3 % (36.0-47.0); HEMOGLOBIN 13.8 g/dL (12.0-15.5); HGB HCT DIFFERENCE 0.1; LYMPHOCYTES % (AUTO) 29.3 % (13-45); MEAN CORPUSCULAR HEMOGLOBIN 29.9 pg (27.0-33.4); MEAN CORPUSCULAR HGB CONC 33.4 g/dL (32.0-36.0); MEAN CORPUSCULAR VOLUME 89 fl (80-97); MONOCYTES % (AUTO) 6.2 % (3-13); RED BLOOD COUNT 4.62 10^6/uL (3.72-5.28); RED CELL DISTRIBUTION WIDTH 13.6 % (11.5-14.0); SEGMENTED NEUTROPHILS % (AUTO) 61.9 % (42-78); WHITE BLOOD COUNT 5.6 10^3/uL (4.0-10.5)
[2016-05-14 16:10] LABS: ALANINE AMINOTRANSFERASE 24 U/L (9-52); ALBUMIN 3.8 g/dL (3.5-5.0); ALKALINE PHOSPHATASE 79 U/L (38-126); ANION GAP 8 (5-19); ASPARTATE AMINO TRANSFERASE 20 U/L (14-36); BILIRUBIN,TOTAL 0.5 mg/dL (0.2-1.3); BLOOD UREA NITROGEN 7 mg/dL (7-20); CALCIUM 9.5 mg/dL (8.4-10.2); CARBON DIOXIDE 26 mmol/L (22-30); CHLORIDE 106 mmol/L (98-107); CREATININE RESULT 0.66 mg/dL (0.52-1.25); GLUCOSE 84 mg/dL (75-110); LIPASE 192.6 U/L (23-300); POTASSIUM 4.7 mmol/L (3.6-5.0); SODIUM 139.8 mmol/L (137-145); TOTAL PROTEIN 7.4 g/dL (6.3-8.2)
[2016-05-14 17:13] VITALS: BP 135/88
== END 2016-05-14 17:11 | disposition home or self-care (01) ==
LOC: ER 13:12
DX: O90.89 Other complications of the puerperium, not elsewhere classified (principal); M54.5 Low back pain; O99.335 Smoking (tobacco) complicating the puerperium; F17.200 Nicotine dependence, unspecified, uncomplicated
CPT/HCPCS: 36415; 80053; 81001; 81025; 83690; 84702; 85025; 87086; 99283

== ENCOUNTER 2016-06-18 18:20 | Emergency (ER) | payer MEDICAID ==
[2016-06-18 19:03] VITALS: BP 139/88
--- NOTE | 2016-06-18 19:04 | ER Document Report ---
ED Medical Screen (RME) - General Stated Complaint: ABDOMINAL PAIN Notes: Patient complains of her mid abdominal pain for 2 weeks. Denies fever, no nausea or vomiting, no diarrhea. No dysuria or vaginal discharge. Patient states she has an appointment with her doctor next Tuesday for a possible ultrasound for ongoing pain. Patient states she had demise on April 26 of this year. No menses since this time. I have greeted and performed a rapid initial assessment of this patient. A comprehensive ED assessment and evaluation of the patient, analysis of test results and completion of the medical decision making process will be conducted by additional ED providers. TRAVEL OUTSIDE OF THE [place] IN LAST 30 DAYS: No - Related Data Allergies/Adverse Reactions: No Known Allergies Allergy (Verified 06/18/16 19:03) Past Medical History Renal/ Medical History: Denies: Hx Peritoneal Dialysis Past Surgical History: Reports: Hx Breast Surgery Physical Exam - General General appearance: Appears well, Alert In distress: None
[2016-06-18 19:35] LABS: ABSOLUTE EOSINOPHILS # (AUTO) 0.1 10^3/uL (0.0-0.6); ABSOLUTE LYMPHOCYTES (AUTO) 1.9 10^3/uL (0.5-4.7); ABSOLUTE MONOCYTES (AUTO) 0.4 10^3/uL (0.1-1.4); ABSOLUTE NEUT (AUTO) 3.1 10^3/uL (1.7-8.2); BASOPHILS % (AUTO) 0.7 % (0-2); HEMATOCRIT 39.4 % (36.0-47.0); HGB HCT DIFFERENCE -0.4; LYMPHOCYTES % (AUTO) 34.6 % (13-45); MEAN CORPUSCULAR HEMOGLOBIN 29.4 pg (27.0-33.4); MEAN CORPUSCULAR HGB CONC 32.9 g/dL (32.0-36.0); MEAN CORPUSCULAR VOLUME 89 fl (80-97); MONOCYTES % (AUTO) 7.6 % (3-13); RED BLOOD COUNT 4.41 10^6/uL (3.72-5.28); RED CELL DISTRIBUTION WIDTH 14.5 % (11.5-14.0); SEGMENTED NEUTROPHILS % (AUTO) 55.1 % (42-78); WHITE BLOOD COUNT 5.6 10^3/uL (4.0-10.5)
[2016-06-18 19:51] LABS: ALANINE AMINOTRANSFERASE 28 U/L (9-52); ALBUMIN 4.6 g/dL (3.5-5.0); ALKALINE PHOSPHATASE 98 U/L (38-126); ANION GAP 11 (5-19); ASPARTATE AMINO TRANSFERASE 23 U/L (14-36); BILIRUBIN,DIRECT 0.2 mg/dL (0.0-0.4); BILIRUBIN,TOTAL 0.5 mg/dL (0.2-1.3); BLOOD UREA NITROGEN 9 mg/dL (7-20); CALCIUM 10.4 mg/dL (8.4-10.2); CARBON DIOXIDE 27 mmol/L (22-30); CHLORIDE 105 mmol/L (98-107); GLUCOSE 83 mg/dL (75-110); LIPASE 136.4 U/L (23-300); POTASSIUM 4.7 mmol/L (3.6-5.0); SODIUM 143.3 mmol/L (137-145); TOTAL PROTEIN 7.9 g/dL (6.3-8.2)
[2016-06-18 19:58] LABS: APPEARANCE,URINE SLIGHTLY-CLOUDY; BILIRUBIN,URINE NEGATIVE (NEGATIVE); GLUCOSE, URINE NEGATIVE (NEGATIVE); KETONES,URINE NEGATIVE (NEGATIVE); LEUKOCYTE ESTERASE,URINE TRACE (NEGATIVE); NITRITE,URINE NEGATIVE (NEGATIVE); PROTEIN,URINE NEGATIVE (NEGATIVE); URINE SPECIFIC GRAVITY 1.021; UROBILINOGEN,URINE NEGATIVE mg/dL (<2.0)
== END 2016-06-18 20:50 | disposition left against medical advice (07) ==
LOC: ER 18:20
DX: Z53.9 Procedure and treatment not carried out, unspecified reason (principal); R10.9 Unspecified abdominal pain
CPT/HCPCS: 36415; 80053; 81001; 83690; 84702; 85025; 99281

== ENCOUNTER 2016-07-07 00:51 | Inpatient (IN) | payer MEDICAID ==
[2016-07-07] MEDS ORDERED: ACETAMINOPHEN 325 MG TABLET PO ONE (03:35)
[2016-07-07] MEDS ORDERED: ACETAMINOPHEN 325 MG TABLET ONE (03:39)
[2016-07-07 03:57] LABS: ABSOLUTE EOSINOPHILS # (AUTO) 0.1 10^3/uL (0.0-0.6); ABSOLUTE LYMPHOCYTES (AUTO) 0.9 10^3/uL (0.5-4.7); ABSOLUTE MONOCYTES (AUTO) 0.4 10^3/uL (0.1-1.4); ABSOLUTE NEUT (AUTO) 6.2 10^3/uL (1.7-8.2); BASOPHILS % (AUTO) 0.4 % (0-2); EOSINOPHILS % (AUTO) 1.1 % (0-6); HEMATOCRIT 38.3 % (36.0-47.0); HEMOGLOBIN 12.7 g/dL (12.0-15.5); HGB HCT DIFFERENCE -0.2; LYMPHOCYTES % (AUTO) 11.4 % (13-45); MEAN CORPUSCULAR HEMOGLOBIN 29.5 pg (27.0-33.4); MEAN CORPUSCULAR HGB CONC 33.2 g/dL (32.0-36.0); MEAN CORPUSCULAR VOLUME 89 fl (80-97); MONOCYTES % (AUTO) 5.1 % (3-13); RED BLOOD COUNT 4.31 10^6/uL (3.72-5.28); RED CELL DISTRIBUTION WIDTH 14.3 % (11.5-14.0); WHITE BLOOD COUNT 7.5 10^3/uL (4.0-10.5)
[2016-07-07 04:08] LABS: ALANINE AMINOTRANSFERASE 154 U/L (9-52); ALBUMIN 4.3 g/dL (3.5-5.0); ALKALINE PHOSPHATASE 87 U/L (38-126); ANION GAP 12 (5-19); ASPARTATE AMINO TRANSFERASE 403 U/L (14-36); BILIRUBIN,DIRECT 0.4 mg/dL (0.0-0.4); BILIRUBIN,TOTAL 0.9 mg/dL (0.2-1.3); BLOOD UREA NITROGEN 12 mg/dL (7-20); CALCIUM 9.4 mg/dL (8.4-10.2); CARBON DIOXIDE 26 mmol/L (22-30); CHLORIDE 104 mmol/L (98-107); GLUCOSE 90 mg/dL (75-110); LIPASE 115.1 U/L (23-300); POTASSIUM 3.9 mmol/L (3.6-5.0); SODIUM 141.7 mmol/L (137-145)
[2016-07-07 04:44] LABS: APPEARANCE,URINE SLIGHTLY-CLOUDY; BILIRUBIN,URINE NEGATIVE (NEGATIVE); GLUCOSE, URINE NEGATIVE (NEGATIVE); KETONES,URINE NEGATIVE (NEGATIVE); LEUKOCYTE ESTERASE,URINE TRACE (NEGATIVE); NITRITE,URINE NEGATIVE (NEGATIVE); PROTEIN,URINE NEGATIVE (NEGATIVE); URINE SPECIFIC GRAVITY 1.027; UROBILINOGEN,URINE NEGATIVE mg/dL (<2.0)
[2016-07-07] MEDS ORDERED: NORMAL SALINE 1000 ML 1,000 ML IV ONE ×2 (07:32→11:42)
[2016-07-07] MEDS ORDERED: ONDANSETRON HCL INJ/PF 4 MG/2 ML SDV IV ONE (07:34)
[2016-07-07] MEDS ORDERED: MORPHINE SULFATE 10 MG/ML INJ IV ONE ×4 (07:34→19:54)
[2016-07-07 08:27] LABS: URINE BARBITURATES SCREEN NEGATIVE; URINE METHADONE SCREEN NEGATIVE; URINE OPIATES LOW NEGATIVE; URINE PHENCYCLIDINE SCREEN NEGATIVE
[2016-07-07 09:35] LABS: CHLAM PCR NOT DETECTED (NOT DETECT)
[2016-07-07] MEDS ORDERED: AMPICILLIN SOD/SULBACTAM 3 GM VIAL IV ONE (11:24)
--- NOTE | 2016-07-07 13:27 | ER Document Report ---
ED General - General TRAVEL OUTSIDE OF THE [place] IN LAST 30 DAYS: No - HPI Patient complains to provider of: abdominal pain right upper quadrant epigastric <MARIMAR QUIROGA - Last Filed: 07/07/16 13:29> <HOMER LAZCANO - Last Filed: 07/07/16 20:09> <FREDERICKKEYANA ANN - Last Filed: 07/07/16 21:31> - General Chief Complaint: Flank Pain Stated Complaint: FLANK PAIN - HPI Notes: Patient coming in today for abdominal pain right flank right upper quadrant epigastric region. Patient states recently diagnosed PID the receive a shot at the [facility] however did not merchandise pickup/receiving associate her other antibiotics as that she cannot afford them. Denies fevers chills states mildly nauseous and vomiting. Patient states no food this morning. Denies any diarrhea denies any trauma. (MARIMAR QUIROGA) - Related Data Allergies/Adverse Reactions: No Known Allergies Allergy (Verified 06/18/16 19:03) Home Medications: Current Home Medications No Home Medications 07/07/16 [History] Past Medical History - Social History Smoking Status: Unknown if Ever Smoked Family History: Reviewed & Not Pertinent Patient has suicidal ideation: No Patient has homicidal ideation: No Renal/ Medical History: Denies: Hx Peritoneal Dialysis Past Surgical History: Reports: Hx Breast Surgery <MARIMAR QUIROGA - Last Filed: 07/07/16 13:29> Review of Systems - Review of Systems Constitutional: No symptoms reported EENT: No symptoms reported Cardiovascular: No symptoms reported Respiratory: No symptoms reported Gastrointestinal: Abdominal pain, Nausea, Vomiting Genitourinary: No symptoms reported Female Genitourinary: No symptoms reported Musculoskeletal: No symptoms reported Skin: No symptoms reported Hematologic/Lymphatic: No symptoms reported Neurological/Psychological: No symptoms reported -: Yes All other systems reviewed and negative <MARIMAR QUIROGA - Last Filed: 07/07/16 13:29> Physical Exam - Vital signs Interpretation: Normal - General General appearance: Appears well, Alert - HEENT Head: Normocephalic, Atraumatic Eyes: Normal Pupils: PERRL - Respiratory Respiratory status: No respiratory distress Chest status: Nontender Breath sounds: Normal Chest palpation: Normal - Cardiovascular Rhythm: Regular Heart sounds: Normal auscultation Murmur: No - Abdominal Inspection: Normal Distension: No distension Bowel sounds: Normal Tenderness: Tender - [id number]-[id number] epigastric tenderness. No: McBurney's point, Gusman's sign, Guarding, Rebound Organomegaly: No organomegaly - Genitourinary External exam: Normal Speculum exam: Other - White discharge cervix is closed there is white discharge coming from the cervix Vaginal bleeding: None Bimanuel exam: Other - Diffuse tenderness with speculum - Back Back: Normal, Nontender - Extremities General upper extremity: Normal inspection, Nontender, Normal color, Normal ROM , Normal temperature General lower extremity: Normal inspection, Nontender, Normal color, Normal ROM , Normal temperature, Normal weight bearing. No: Demar's sign - Neurological Neuro grossly intact: Yes Cognition: Normal Orientation: AAOx4 [place] Coma Scale Eye Opening: Spontaneous Susan Coma Scale Verbal: Oriented [place] Coma Scale Motor: Obeys Commands Susan Coma Scale Total: 15 Speech: Normal Motor strength normal: LUE, RUE, LLE, RLE Sensory: Normal - Psychological Associated symptoms: Normal affect, Normal mood - Skin Skin Temperature: Warm Skin Moisture: Dry Skin Color: Normal <MARIMAR QUIROGA - Last Filed: 07/07/16 13:29> Course - Laboratory Result Diagrams: 07/07/16 03:42 07/07/16 03:42 <MARIMAR QUIROGA - Last Filed: 07/07/16 13:29> - Laboratory Result Diagrams: 07/07/16 03:42 07/07/16 03:42 - Consults Dr. Joel Time consulted: 16:27 Dr. Samaniego Time consulted: 17:02 Dr. Myers Time consulted: 17:32 Dr. Stephens Time consulted: 17:35 <HOMER LAZCANO - Last Filed: 07/07/16 20:09> - Laboratory Result Diagrams: 07/07/16 03:42 07/07/16 03:42 <KEYANA MACK - Last Filed: 07/07/16 21:31> - Re-evaluation Re-evalutation: 07/07/16 13:22 Patient's lab work was taken prior to my arrival. Review of the lab work that showed elevation in liver function tests. Patient does have some epigastric tenderness. Due to the patient's history of recent PID and due to tenderness on pelvic examination fill the initial best imaging choice been a CT scan. CT scan distress of fluid around gallbladder recommended ultrasound is no signs of tubo-ovarian abscess or other pathology. Ultrasound was performed again showing fluid around gallbladder inflammation with the dilated common bile duct there is no visualization of a ductal obstruction no signs of any obstructive pattern with the patient's lab work. I did contact surgeon on-call who requested an MRCP. MRCP would be available according to the radiologist. This was ordered. Patient has been made nothing by mouth IV antibiotics have been given. Patient was also instructed that we will have to hold off on any further morphine. 07/07/16 13:30 (MARIMAR QUIROGA) 07/07/16 Received signout patient from Dr. Quiroga. Patient with abdominal pain. Ultrasound with concern for cholecystitis. Patient with some elevation of AST and ALT. MRCP is not showing any signs of gallstone. Discussed with surgery who recommends medical admission. Discussed with GI who does not think that this is an acute hepatitis. Patient with negative hepatitis panel in March. Discussed again with surgery who thinks that the patient might have cholecystitis and will admit to their service. Patient will be given morphine for pain control after HIDA scan is completed. Explained to patient reason for testing and evaluation. She is quite pleasant and understands. Agrees with plan. (KEYANA MACK) - Vital Signs Vital signs: Temp Pulse Resp BP Pulse Ox 98.9 F 62 18 109/63 98 07/07/16 16:38 07/07/16 16:38 07/07/16 16:38 07/07/16 16:38 07/07/16 16:38 - Laboratory Laboratory results interpreted by me: 07/07/16 07/07/16 07/07/16 03:42 03:42 03:42 RDW 14.3 H Seg Neutrophils % 82.0 H Lymphocytes % 11.4 L AST 403 H ALT 154 H Ur Leukocyte Esterase TRACE H Salicylates Acetaminophen 07/07/16 03:42 RDW Seg Neutrophils % Lymphocytes % AST ALT Ur Leukocyte Esterase Salicylates < 1.0 L Acetaminophen < 10 L - Consults Dr. Joel Reason for consultation: 07/07/16 16:[address] Joel to inform him that this patient's MRI of the abdomen had been completed; he will contact radiology to discuss this further. 07/07/16 16:[address] Joel in person; he recommends to admit the patient to medicine not surgery. 07/07/16 17:10 Dr. Samaniego is admitting but Dr. Joel said that he will also follow the patient. 07/07/16 17:[address] Joel from the nurses computer; Dr. Joel spoke to Dr. Stephens on the phone regarding patient. 07/07/16 17:45 Dr. Joel will admit the patient. 07/07/16 20:[address] Joel to ask about patient's PO status. (HOMER LAZCANO) Dr. Samaniego Reason for consultation: 07/07/16 17:[address] Samaniego to possibly admit the patient; patient will be admitted. 07/07/16 17:[address] Samaniego in person in the ED concerning the patient. (HOMER LAZCANO) Dr. Myers Reason for consultation: 07/07/16 17:[address] Myers for possible consult. He recommends to call Dr. Stephens for this. (HOMER LAZCANO) Dr. Stephens Reason for consultation: 07/07/16 17:[address] Stephens to discuss patient; he requests to speak with surgery, Dr. Joel. (HOMER LAZCANO) Discharge <MARIMAR QUIROGA - Last Filed: 07/07/16 13:29> <HOMER LAZCANO - Last Filed: 07/07/16 20:09> - Discharge Admitting Provider: Surgicalist - [facility] Admitted: Surgical Floor <KEYANA MACK - Last Filed: 07/07/16 21:31> - Discharge Clinical Impression: Epigastric abdominal pain, Elevated LFTs, Probable cholecystitis Condition: Stable Disposition: ADMITTED INPATIENT Scribe Attestation: 07/07/16 21:31 I personally performed the services described in the documentation, reviewed and edited the documentation which was dictated to the scribe in my presence, and it accurately records my words and actions. (KEYANA MACK)
[2016-07-07] MEDS ORDERED: NORMAL SALINE 1000 ML 1,000 ML IV PRN (17:10)
[2016-07-07 18:03] LABS: CREATINE KINASE 75 U/L (30-135)
[2016-07-07 18:05] LABS: ALCOHOL < 10 mg/dL (NONE DETECTED)
[2016-07-07 18:34] LABS: PROTHROMBIN TIME 13.6 SEC (11.4-15.4)
[2016-07-07 18:35] LABS: PARTIAL THROMBOPLASTIN TIME 28.9 SEC (23.5-35.8)
--- NOTE | 2016-07-07 18:53 | HISTORY AND PHYSICAL E ---
History and Physical NAME: AALIYAH METZ : 1990 AGE: 26Y ADMITTED: 07/07/2016 ROOM: CHIEF COMPLAINT: Abdominal pain. HISTORY OF PRESENT ILLNESS: This is a 26-year-old female who has been complaining of back pain radiating to the abdomen for the past 3 days. She had a history of stillborn at the end of March. She started having some lower abdominal discomfort radiating to the epigastric area about 2 months ago and given antianxiety medications for about a month. The patient actually stopped taking it after about a month; however, 3 days ago, she started having back pain radiating to the abdomen. Denies any nausea or vomiting or loss of appetite. Denies any fever. No headaches, no chills. No dysuria. She then came to the Emergency Room and had an ultrasound of the gallbladder which showed no stones in the gallbladder but showed gallbladder wall thickening and gallbladder wall fluid with slightly dilated common bile duct. She then underwent an MRCP which showed acalculous cholecystitis versus recently passed gallstone. I reviewed the films with Dr. Belcher and thought that she might have an underlying hepatitis. She did have a previous CT scan of the abdomen which showed pericholecystic fluid and periportal edema. REVIEW OF SYSTEMS: As in HPI. Denies any cough, shortness of breath or headaches. No chills or fever. No sore throat. No earaches. No balance problems. No chest pain. Abdominal pain as in HPI. Rest of the systems unremarkable. ALLERGIES: No known. SOCIAL HISTORY: Smokes occasionally and drinks socially. Denies drug use. MEDICATIONS: At the present time, she denies any medications though about 3 days ago she went to her [facility] and was given anti-inflammatory injection and prescribed antibiotics, but she did not take it because she cannot afford the medication. She did have gonorrhea, but they are all normal according to her. FAMILY HISTORY: Her sister 33 years old has had her gallbladder removed. Her mother had cervical cancer and around age 47 due to this. Her maternal grandmother of gastric cancer. The paternal grandmother of lung cancer. The patient claims she was diagnosed to have cervical cancer at age 16, but this was removed and frozen and has been followed up by water attendant ever since. PHYSICAL EXAMINATION: GENERAL: On physical examination, this is a well-developed, well-nourished, 26-year-old female alert and oriented, denies any significant discomfort other than epigastric pains. VITAL SIGNS: Normal. No fever. NECK: Supple. LUNGS: Clear. HEART: Regular sinus rhythm. ABDOMEN: Soft with mild tenderness at the epigastric area and a little bit towards the right side. No definite pelvic tenderness. EXTREMITIES: No edema. LABORATORIES: LFTs: ALT is about 400, and AST is about 175. Lipase is normal. Bilirubin normal. White count is normal. IMPRESSION: 1. Acute acalculous cholecystitis. 2. Possible passage of common bile duct stone. PLAN: 1. The patient will be started on IV antibiotics. 2. HIDA scan and keep n.p.o. and hydrate her. Will likely need laparoscopic cholecystectomy. DICTATING PHYSICIAN: ASHLEY PEMBERTON M.D. [id number] PHY#: [id number] ID: [id number] JOB#: [id number] ACCT: [id number] cc: >
[2016-07-07] MEDS: CEFAZOLIN 1 GM/D5W RTU 1 GM/50 ML RTUPB IV SCH (22:26)
[2016-07-08] MEDS: MORPHINE SULFATE 10 MG/ML INJ IV PRN ×4 (01:15→20:58)
[2016-07-08 04:54] LABS: HEMATOCRIT 32.5 % (36.0-47.0); HEMOGLOBIN 11.1 g/dL (12.0-15.5); HGB HCT DIFFERENCE 0.8; MEAN CORPUSCULAR HEMOGLOBIN 30.3 pg (27.0-33.4); MEAN CORPUSCULAR HGB CONC 34.2 g/dL (32.0-36.0); MEAN CORPUSCULAR VOLUME 89 fl (80-97); RED BLOOD COUNT 3.66 10^6/uL (3.72-5.28); RED CELL DISTRIBUTION WIDTH 14.5 % (11.5-14.0); WHITE BLOOD COUNT 4.3 10^3/uL (4.0-10.5)
[2016-07-08 05:15] LABS: ALANINE AMINOTRANSFERASE 444 U/L (9-52); ALBUMIN 3.5 g/dL (3.5-5.0); ALKALINE PHOSPHATASE 112 U/L (38-126); ANION GAP 11 (5-19); ASPARTATE AMINO TRANSFERASE 338 U/L (14-36); BILIRUBIN,DIRECT 0.2 mg/dL (0.0-0.4); BILIRUBIN,TOTAL 0.9 mg/dL (0.2-1.3); BLOOD UREA NITROGEN 6 mg/dL (7-20); CALCIUM 8.4 mg/dL (8.4-10.2); CARBON DIOXIDE 23 mmol/L (22-30); CHLORIDE 107 mmol/L (98-107); CREATININE RESULT 0.62 mg/dL (0.52-1.25); LIPASE 68.3 U/L (23-300); POTASSIUM 3.9 mmol/L (3.6-5.0); SODIUM 140.8 mmol/L (137-145); TOTAL PROTEIN 5.7 g/dL (6.3-8.2)
[2016-07-08 05:16] LABS: GLUCOSE 80 mg/dL (75-110)
[2016-07-08] MEDS: CEFAZOLIN 1 GM/D5W RTU 1 GM/50 ML RTUPB IV SCH ×3 (05:53→20:56)
[2016-07-08] MEDS ORDERED: NEOSTIGMINE METHYLSULFATE 10 MG/10 ML VIAL ONE (07:42)
[2016-07-08] MEDS ORDERED: LIDOCAINE 2% INJ-PF (20 MG/ML) 10 ML AMPUL ONE (07:42)
[2016-07-08] MEDS ORDERED: ROCURONIUM BROMIDE INJ 50 MG/5 ML VIAL IV ONE (07:42)
[2016-07-08] MEDS ORDERED: GLYCOPYRROLATE INJ 0.4 MG/2 ML VIAL ONE (07:42)
[2016-07-08] MEDS ORDERED: DEXAMETHASONE SOD PHOSPHATE INJ 4 MG/1 ML VIAL ONE (07:42)
[2016-07-08] MEDS ORDERED: SUCCINYLCHOLINE CHLORIDE INJ 200 MG/10 ML VIAL ONE (07:42)
[2016-07-08] MEDS ORDERED: ONDANSETRON HCL INJ/PF 4 MG/2 ML SDV ONE (07:42)
[2016-07-08] MEDS ORDERED: BUPIVACAINE HCL 0.25% /EPINEPHRINE INJ/PF 30 ML SDV ONE (16:16)
[2016-07-08] MEDS ORDERED: HYDROMORPHONE HCL INJ/PF 2 MG/ML AMPULE ONE (16:21)
[2016-07-08] MEDS ORDERED: FENTANYL CITRATE INJ/PF 250 MCG/5 ML AMPULE ONE (16:21)
[2016-07-08] MEDS ORDERED: PROPOFOL INJ 200 MG/20 ML VIAL IV ONE (16:22)
[2016-07-08] MEDS ORDERED: MIDAZOLAM 2 MG/2 ML INJ ONE (16:22)
[2016-07-08] MEDS ORDERED: ACETAMINOPHEN 100 ML IV ONE ×2 (16:23→19:00)
[2016-07-08] MEDS: FENTANYL CITRATE INJ/PF 100 MCG/2 ML AMPUL ONE ×2 (19:00→19:05)
[2016-07-08] MEDS ORDERED: KETOROLAC TROMETHAMINE INJ/PF 30 MG/1 ML SDV ONE (19:26)
[2016-07-08] MEDS ORDERED: ONDANSETRON HCL INJ/PF 4 MG/2 ML SDV IV PRN (19:27)
[2016-07-08] MEDS: MORPHINE SULFATE 10 MG/ML INJ ONE ×2 (19:50→20:00)
--- NOTE | 2016-07-08 20:53 | OPERATIVE REPORT E ---
Operative Report NAME: AALIYAH METZ : 1990 AGE: 26Y DATE OF SURGERY: 07/08/2016 ROOM: 413 PREOPERATIVE DIAGNOSIS: Acalculous cholecystitis and dilated common bile duct. OPERATION: 1. Laparoscopic cholecystectomy. 2. Intraoperative cholangiogram. SURGEON: ASHLEY PEMBERTON M.D. ANESTHESIA: General. INDICATION: This is a 26-year-old female with mid back pain radiating to the epigastric area for the past 2-3 days. She had a CAT scan and ultrasound which showed acute cholecystitis and dilated common bile duct. She had an MRCP which showed no common bile duct obstruction but just mildly dilated common bile duct with fluid around the gallbladder. She had a HIDA scan subsequently which filled up the gallbladder. However since the patient is still symptomatic and there is evidence of cholecystitis, I proceeded with laparoscopic cholecystectomy and intraoperative cholangiogram. Incidentally, her liver function tests were elevated. There is a question of passage gallstones. PROCEDURE: After adequate general anesthesia, the patient was placed in supine position and the abdomen prepped and draped in the usual sterile fashion. Appropriate timeout was then performed. Next, an infraumbilical incision was made and the fascia identified and grasped with Derik clamps and divided between the Derik clamps. A Margot trocar was then inserted through the fascia into the abdominal cavity and CO2 insufflated up to a pressure of 15 mmHg. Next, 3 added trocars were placed: an 11 mm in the subxiphoid and two 5 mm in the right upper quadrant. These trocars were placed under direct vision. Next, the gallbladder was then identified, noted to be edematous. The cystic duct was then dissected and isolated. The cystic artery also identified, isolated and clips were placed on the artery and divided between the clips. A single clip placed towards the area of the gallbladder. A small incision made in the cystic duct and a cholangiocatheter was then passed through an Angiocath towards the area of the cystic duct. The cystic duct was then cannulated and a clip placed to stabilize the cholangiocath. Next, 10 mL of half and half dye was then used initially to inject the cystic duct, and it showed that the distal common bile duct is slightly dilated but no evidence of any stone. There is no obstruction and the dye went into the small intestine quite easily. Next, another view was obtained after injecting about 15 mL of the dye to primarily visualize the whole duct and the proximal ducts. This showed no evidence of any obstruction or stones in the common bile duct or in the common hepatic ducts. Next, the cholangiocatheter was removed and clips placed on the cystic duct and then divided. The gallbladder was then dissected off the liver bed with the use of Harmonic naveen. Adequate hemostasis was noted. Unfortunately, there was some bleeding where the cholangiocath was passed through to the abdominal wall. A small incision was made over the tract of the cholangiocath and the bleeding was controlled with Alfredo-Goldsmith needle and 0-Vicryl suture passed through the needle. A cruciate closure was done of the bleeding site and this controlled bleeding nicely. Next, the abdominal cavity was then irrigated with saline. No active bleeding noted of the trocar site. The abdominal cavity was then further explored and the ovaries were noted to be normal as well as the uterus, which may be slightly enlarged. No other abnormalities noted in the abdominal cavity. The trocars were then removed and CO2 allowed to come out of the trocar sites. Prior to removal of the trocars, a closure of the subxiphoid fascia defect was then closed with the use of the Alfredo-Goldsmith needle using 0-Vicryl. Next, the infraumbilical fascial defect was then closed with [id number] sutures using 0-Vicryl. All the skin incisions were then closed with subcuticular closure using 4-0 Monocryl. Dermabond was used as a dressing in all the incision sites. The patient tolerated the procedure well. Needle, instrument, and sponge counts were all correct. An estimated blood loss about 20 mL. DICTATING PHYSICIAN: ASHLEY PEMBERTON M.D. [id number] PHY#: [id number] ID: [id number] JOB#: [id number] ACCT: [id number] cc:ASHLEY PEMBERTON M.D. > MTDD
[2016-07-08] MEDS: KETOROLAC TROMETHAMINE INJ/PF 30 MG/1 ML SDV INJ PRN (20:57)
[2016-07-08] MEDS ORDERED: MORPHINE SULFATE 10 MG/ML INJ IV PRN (23:41)
[2016-07-09] MEDS: MORPHINE SULFATE 10 MG/ML INJ IV PRN ×2 (02:40→04:39)
[2016-07-09] MEDS: KETOROLAC TROMETHAMINE INJ/PF 30 MG/1 ML SDV INJ PRN (04:39)
[2016-07-09] MEDS: CEFAZOLIN 1 GM/D5W RTU 1 GM/50 ML RTUPB IV SCH (04:40)
[2016-07-09 07:44] LABS: ALANINE AMINOTRANSFERASE 353 U/L (9-52); ALBUMIN 4.4 g/dL (3.5-5.0); ALKALINE PHOSPHATASE 123 U/L (38-126); ASPARTATE AMINO TRANSFERASE 119 U/L (14-36); BILIRUBIN,DIRECT 0.2 mg/dL (0.0-0.4); BILIRUBIN,TOTAL 0.6 mg/dL (0.2-1.3); LIPASE 32.2 U/L (23-300); TOTAL PROTEIN 7.1 g/dL (6.3-8.2)
[2016-07-09] MEDS ORDERED: OXYCODONE-ACETAMINOPHEN 5-325 MG TABLET PO PRN (08:13)
[2016-07-09] MEDS ORDERED: MORPHINE SULFATE 10 MG/ML INJ IV PRN (08:14)
--- NOTE | 2016-07-09 08:33 | PROGRESS NOTE E ---
Progress Note NAME: AALIYAH METZ : 1990 AGE: 26Y DATE: ROOM: 413 SUBJECTIVE: This is the first postop day post laparoscopic cholecystectomy and intraoperative cholangiogram. The patient has been complaining primarily of incisional pains. OBJECTIVE: She is afebrile. Her abdomen is soft and the incisions are clean and dry. She is taking clear liquids well and this will be increased to a soft diet. She had blood work done this morning which showed a white count of 4.3, hemoglobin 11.1. Her liver function tests have improved with AST decreased from 338 to 119; and the ALT from 444 to 353 this morning. PLAN: Gradually switch her to p.o. pain medications and increase her diet, and possibly discharge today by Dr. Cortez. DICTATING PHYSICIAN: ASHLEY PEMBERTON M.D. [id number] PHY#: [id number] ID: [id number] JOB#: [id number] ACCT: [id number] cc: >
[2016-07-09 12:13] VITALS: BP 118/71
--- NOTE | 2016-07-14 17:28 | DISCHARGE SUMMARY E ---
Discharge Summary NAME: AALIYAH METZ : 1990 AGE: 26Y ADMITTED: 07/07/2016 DISCHARGED: 07/09/2016 REASON FOR ADMISSION: Abdominal pain. SUMMARY OF HOSPITALIZATION: The patient is a 26-year-old female admitted to the surgicalist service complaining of abdominal pain. She had an extensive workup and was eventually admitted to the surgicalist service for possible acalculous cholecystitis. The patient underwent ultrasonography of the gallbladder, CT scan of the abdomen and pelvis, MRI scan of the abdomen, and was eventually taken to the operating room by Dr. Joel on 07/08/2016 and was found to have chronic cholecystitis. The intraoperative cholangiogram was unremarkable. Postoperatively the patient had an uneventful course. She was started on a diet and this was advanced and tolerated well. By the second postoperative day, she was felt to be ready for discharge home. FINAL DIAGNOSIS: Chronic cholecystitis, status post laparoscopic cholecystectomy with intraoperative cholangiogram by Dr. Joel. DISPOSITION: Patient will be discharged home in care of family. Followup with Dr. Wilson or colleague at [facility] in approximately 1 week. Take Percocet p.r.n. pain. DICTATING PHYSICIAN: SANDEEP WILSON M.D. [id number] PHY#: [id number] ID: [id number] JOB#: [id number] ACCT: [id number] cc:SANDEEP WILSON M.D. [facility] >
== END 2016-07-09 13:04 | disposition home or self-care (01) | DRG 419 ==
LOC: ER 00:51 → UNDOADMIN 18:29 → EH 18:29 → 4N 21:00 → EH 21:00 → 4N 21:42
PROVIDERS: ATTEND Surgery
PROC: BF031ZZ Plain Radiography of Gallbladder and Bile Ducts using Low Osmolar Contrast (ICD-10-PCS; 2016-07-08)
PROC: 0FT44ZZ Resection of Gallbladder, Percutaneous Endoscopic Approach (ICD-10-PCS; principal; 2016-07-08 16:30)
DX: K81.0 Acute cholecystitis (principal); K81.1 Chronic cholecystitis
CPT/HCPCS: 36415; 74177; 74181; 74300; 76705; 78226; 790; 80048; 80053; 80074; 80076; 80307; 81001; 81025; 82550; 83690; 83880; 84443; 84703; 85025; 85027; 85610; 85730; 87040; 87210; 87491; 87591; 88304; 96361; 96365; 96375; 96376; 99285; A9537; J0131; J0295; J0330; J0690; J1100; J1170; J1885; J2250; J2270; J2405; J2704; J3010; J3490; J7030; Q9969